=== PATIENT | female | born 1995 ===

== ENCOUNTER 2016-10-03 21:06 | Emergency (ER) | payer OTHER ==
[~2016-10-03] VITALS: Ht 154.9 cm; Wt 108.5 kg
[2016-10-03 21:11] VITALS: Ht 154.9 cm; Wt 108.5 kg
[2016-10-04] MEDS ORDERED: LIDOCAINE/MYLANTA 40 ML BTL PO STA (02:36)
[2016-10-04] MEDS ORDERED: FAMOTIDINE 20 MG TAB PO STA (02:36)
--- NOTE | 2016-10-04 02:41 | ERD ---
ER Documentation Chief Complaint Date/Time DATE: 10/04/16 TIME: 02:38 Chief Complaint upper abd pain, pt feeling faint x 1 day HPI The patient is a 21-year-old female here with her mom for epigastric pain that she describes as burning and churning, sour taste in her throat, and burping since approximately 8 AM this morning. She said it got worse after eating breakfast. She states that she is now feeling somewhat better. She reported eating spicy food yesterday. She has never experienced this in the past. Her last menstrual period was 09/02/16. She denies any other symptoms or concerns. No home treatments. No sick contacts. ROS All systems reviewed and are negative except as per history of present illness. Medications Home Meds Active Scripts Ranitidine Hcl* (Zantac*) 150 Mg Tablet, 150 MG PO BID Y for EPIGASTRIC PAIN, # 10 TAB Prov:MAKI TAVERA, [employer] 10/04/16 Magaldrate/Simethicone* (Mylanta*) 355 Ml Susp, 20 ML PO TID Y for GASTROINTESTINAL UPSET, #1 BOTTLE Prov:MAKI TAVERA, [employer] 10/04/16 Allergies Allergies: Coded Allergies: No Known Allergy (Unverified , 10/03/16) PMhx/Soc Medical and Surgical Hx: pt denies Medical Hx, pt denies Surgical Hx History of Surgery: No Anesthesia Reaction: No Hx Neurological Disorder: No Hx Respiratory Disorders: No Hx Cardiac Disorders: No Hx Psychiatric Problems: No Hx Miscellaneous Medical Probl: No Hx Alcohol Use: No Hx Substance Use: No Hx Tobacco Use: No Smoking Status: Never smoker Physical Exam Vitals Vital Signs Date Time Temp Pulse Resp B/P Pulse Ox O2 Delivery O2 Flow Rate FiO2 10/04/16 04:51 98.8 90 18 98 Room Air 10/03/16 21:11 98.9 113 17 126/85 98 Physical Exam INITIAL VITAL SIGNS: Reviewed by me. Patient was tachycardic on intake vitals. On my assessment her heart rate was 80 bpm. GENERAL: Alert. Well developed and well nourished. No respiratory distress HEAD: Head is normocephalic. Atraumatic. EYES: EOMI. PERRL. No scleral icterus. No conjunctival injection. ENT: External ears, nose, and mouth normal. Nasal passages patent. Moist mucous membranes. NECK: Supple. Full range of motion. Trachea midline. RESPIRATORY: No tachypnea. Clear to auscultation bilaterally. No wheezing, rales , or rhonchi. CV: Regular rate and rhythm. No murmurs, rubs, or gallops ABDOMEN: + Epigastric tenderness to palpation. Soft, non-distended. No guarding. No rebound. No McBurney's point tenderness. Negative psoas sign. Negative obturator sign. Negative Nassar's sign. No masses. Bowel sounds normal in all quadrants. BACK: No CVA tenderness. Full ROM. EXTREMITIES: No obvious deformity. No clubbing or cyanosis. No edema. SKIN: Warm and dry. No diaphoresis. No obvious rashes or lesions. NEUROLOGIC: Alert and oriented x 3. Appropriate. Face is symmetric. Speech is normal. Moves all extremities equally. Results 24 hrs Current Medications Medications (Trade) Dose Ordered Sig/Jean Route PRN Reason Start Time Stop Time Status Last Admin Dose Admin Famotidine (Pepcid) 20 mg ONCE STAT PO 10/04/16 02:36 10/04/16 02:38 DC 10/04/16 02:49 Miscellaneous Medication (Gi Cocktail (2)) 40 ml ONCE STAT PO 10/04/16 02:36 10/04/16 02:38 DC 10/04/16 02:50 Procedures/MDM Nursing Notes Reviewed Previous Medical Records requested via [employer]. EMERGENCY DEPARTMENT COURSE / MEDICAL DECISION MAKING: The patient comes to the ED secondary to epigastric burning and churning pain, sour taste in her throat, and burping since proximately 8 AM today. Differential diagnosis upon initial evaluation includes but is not limited to: GERD, peptic ulcer disease, appendicitis, cholecystitis, and others. The patient was treated with viscous lidocaine, Mylanta, and Pepcid 20 mg p.o. The patient's repeat physical exam was benign. She did not have any abdominal pain or tenderness to palpation. Her bowel sounds renamed normal active in all quadrants. She said that her symptoms have completely resolved. At this time, her history of present illness, physical exam, and response to treatment are most consistent with GERD. Final impression: Epigastric pain Based on patient's history of present illness and physical examination the decision was made to discharge. The patient was re-evaluated after ED treatment and stabilizing measures, and symptoms have improved. There is no evidence of life threatening injuries or illnesses at this time. There is no evidence at this time acute surgical abdomen. On re-examination, patient resting in no distress, stable vital signs, reports feeling better, and she and her mother report feeling safe for discharge with outpatient follow up with PMD in 1-2 days. Patient given return precautions. She verbalized understanding and agreed to return precautions. Prescription Mylanta Ranitidine MAKI TAVERA NP Oct 04, 2016 02:41
[2016-10-04] MEDS ORDERED: MAG-19 PO (04:39)
[2016-10-04] MEDS ORDERED: RANI150T9 PO (04:39)
[2016-10-04 04:51] VITALS: PULSE 90; RESP 18; TEMP 98.8
== END 2016-10-04 04:51 | disposition home or self-care (01) ==
LOC: FTE 21:06
DX: R10.13 Epigastric pain (principal)
CPT/HCPCS: Z7502; Z7610; 99283